=== PATIENT | female | born 1980 | race Caucasian/White ===

== ENCOUNTER 2018-10-14 13:19 | Outpatient (REF) | payer MEDICAID, SELFPAY ==
--- NOTE | 2018-10-14 11:30 | PAPFT_PTH ---
PATIENT: Teresita Garibay LOC: [facility] U#:[id number] AGE/SX: 38/F ROOM: RE10/14/[address]: Veronica Ortiz : 1980 BED: DIS: 10/14/2018 SPEC #: [id number] RECD: 10/14/18 18:00 STATUS: REGULO ALMEIDA #: [id number] CRICKET: 10/14/18 11:[address]: Veronica Ortiz DEPT: [facility] Cytology RECD BY: Diana Chavarria ENTERED: 10/14/18 18:01 SP TYPE: PAPFT JONATHAN DR: None Tissues: 1 - CX/ENDOCX FOR PAP SMEARS Procedures: PAP THIN PREP/UVM Screening HPV DNA PROBE Comments: [id number]
== END 2018-10-14 13:39 ==
LOC: NCHCN 13:19
PROVIDERS: Visit Provider Nurse Practitioner
DX: Z12.4 Encounter for screening for malignant neoplasm of cervix (principal); Z11.51 Encounter for screening for human papillomavirus (HPV); Z00.00 Encounter for general adult medical examination without abnormal findings
CPT/HCPCS: 88142; 87624

== ENCOUNTER 2019-07-15 10:56 | Outpatient (REF) | payer MEDICAID, SELFPAY ==
[2019-07-15 12:16] LABS: Abs Immature Grans 0.01 k/cumm (0.0-0.09); Absolute Basophil Count 0.02 k/cumm (0.0-0.2); Absolute Eosinophil Count 0.05 k/cumm (0.0-0.7); Absolute Lymphocyte Count 2.22 k/cumm (1.2-3.4); Absolute Monocyte Count 0.64 k/cumm (0.11-0.7); Absolute Neutrophil Count 5.38 k/cumm (1.2-6.7); Basophils % 0.2; Eosinophils % 0.6; HCT 41.8 % (36.0-46.0); HGB 14.4 g/dL (12.0-15.5); Immature Grans % 0.1; Lymphocytes % 26.7; Mean Corp. HGB Concentration 34.4 g/dL (32.0-36.0); Mean Corpuscular Hemoglobin 33.3 pg (27.0-33.0); Mean Corpuscular Volume 96.8 fL (80-95); Mean Platelet Volume 11.5 fL (8.0-11.0); Monocytes % 7.7; Neutrophils % 64.7; Platelet Count 230 x1000/uL (130-400); RBC 4.32 m/cumm (4.00-5.20); White Blood Cell Count 8.32 k/cumm (4.4-10.8)
== END 2019-07-15 11:16 ==
LOC: NCHCN 10:56
PROVIDERS: PCP Family Medicine; Visit Provider Family Medicine
DX: R59.1 Generalized enlarged lymph nodes (principal); R53.83 Other fatigue
CPT/HCPCS: 85025

== ENCOUNTER 2021-04-10 08:33 | Emergency (ER) | payer MEDICAID, SELFPAY ==
[2021-04-10 08:42] VITALS: BP 126/70; PULSE 79; RESP 16; TEMP 36.4; O2SAT 100
--- NOTE | 2021-04-10 08:46 | ED.GENADUL_ITS ---
Discharge Plan Disposition Patient Disposition: HOME Condition: Stable Discharge Details Clinical Impression: URI (upper respiratory infection) Primary Care Provider: Carey Jean-Baptiste ED Provider: Aubrey Busby Home Meds and New Rx's Prescriptions: Continued ibuprofen 200 MG capsule 3 tab PO PRN PRNRF: 0 ascorbic acid (vitamin C) [Vitamin C] 1,000 MG tablet 2,000 mg PO DAILY RF: 0 cetirizine 10 MG tablet,chewable 10 mg PO DAILY RF: 0 cholecalciferol (vitamin D3) [Vitamin D3] 50 mcg (2,000 unit) Capsule 50 mcg PO DAILY RF: 0 Discharge Instructions Instructions: Upper Respiratory Infection (ED) Additional Instructions: Based upon your symptoms and the timeline, very unlikely this is related to tetanus. Tetanus status updated today. Rapid strep is negative, culture pending. Covid test is also pending, I recommend quarantining until your Covid test has come back negative in the next few days. In the meantime please watch for new or worsening symptoms as we discussed and return immediately to the ER. Otherwise plenty of fluids to avoid dehydration, [id number] medications for symptomatic control. I would contact your primary care office today from aware of your ER visit and discussed need for outpatient reevaluation if symptoms are to persist. Medical Decision Making This is a 40-year-old female who reports working on a vehicle Thursday afternoon, sustained a small injury to her left index finger and got dirt-rest under her thumb nails. Thursday morning she noticed a mild sore throat which has now progressed to a mild-moderate sore throat, headache, anterior neck disco mfort. Tetanus status is not up-to-date. Patient states that she is specifically concerned about tetanus. Symptoms began approximately 36 hours after possible exposure which would certainly be rapid onset of symptoms. Clinically she has no trismus, spasms, signs of tetany. Patient likely has a viral URI. We discussed signs and symptoms of tenderness in length and patient was encouraged to return immediately to the ER if she develops any of these. Will test for rapid strep and Covid given her URI-like symptoms. Patient is comfortable plan and has no additional questions or concerns. We did discuss the importance of quarantining until Covid test is negative. Rapid strep negative, culture pending. Patient continues to appear well, nontoxic. Patient is comfortable with this plan and has no additional questions or concerns. Medical Records Medical records reviewed: Yes I reviewed the patient's medical records. Lab Data Lab results reviewed: Yes I reviewed the patient's lab results. Labs: 04/10/21 08:55 Pharynx Group A Streptococcus Culture - Pending HPI General Mode of arrival: ambulatory . Date/Time Provider Initiated Documentation: 04/10/21 08:33 . Limitations to Documentation: no limitations . Information obtained by: patient . HPI Narrative: This is a 40-year-old female, denies significant past medical history, presenting to the ER complaining of a sore throat, mild global headache, concern for potential tetanus after sustaining abrasion on Thursday while working on her car. Patient states that she had a small cut to her left index finger and had alena material underneath both of her thumb nails. She attempted to take out the rest under her nails and cleaned the cut with soap and water. This occurred on Thursday afternoon. She states that approximately 36 hours later, Thursday, she noticed a scratchy throat that subsequently became more painful associate with a headache and anterior neck pain. She denies visual changes, posterior neck discomfort, fever, chest pain, shortness of breath, abdominal pain, nausea, vomiting, difficulty opening her mouth, swallowing, muscle spasms, numbness, tingling, weakness. Patient believes that her tetanus status is out of date. Related Data Home Medications Medication Instructions Recorded Confirmed ibuprofen 3 tab PO PRN PRN 02/04/16 04/10/21 ascorbic acid (vitamin C) [Vitamin 2,000 mg PO DAILY 06/23/17 04/10/21 C] cetirizine 10 mg PO DAILY 06/23/17 04/10/21 cholecalciferol (vitamin D3) 50 mcg PO DAILY 04/10/21 04/10/21 [Vitamin D3] Allergies Allergy/AdvReac Type Severity Reaction Status Date / Time amoxicillin Allergy Mild Hives Unverified 04/10/21 08:50 codeine Allergy Unknown Unverified 04/10/21 08:50 Sulfa (Sulfonamide AdvReac Unknown Dizziness/L Unverified 04/10/21 08:50 Antibiotics) ightheade Review of Systems Constitutional Constitutional: Denies fever(s), Reports headache(s) and Denies weakness ENT Ears, Nose, Mouth, and Throat: Reports headache(s), Reports neck pain and Reports sore throat Cardiovascular Cardiovascular: Denies chest pain and Denies dyspnea Respiratory Respiratory: Denies cough and Denies dyspnea Gastrointestinal Gastrointestinal: Denies abdominal pain, Denies nausea and Denies vomiting Musculoskeletal Musculoskeletal: Denies back pain, Denies muscle cramps, Denies muscle weakness, Reports neck pain, Denies numbness and Denies tingling Integumentary/Breasts Skin/Breast: Denies rash Neurologic Neurologic: Reports headache(s), Denies numbness, Denies tingling and Denies weakness [facility] Social History Smoking/Tobacco Use Status: Current every day Smoking risk assessment performed?: Yes Alcohol Intake: current Alcohol Intake frequency: 3 or more drinks per day Alcohol type: beer Drug use: Never Do you feel safe at home: Yes Do you feel safe in your relationship?: Yes Exam Const General: cooperative, healthy appearing, comfortable and no acute distress Orientation: alert and awake HENMT Head: normal to inspection, normocephalic and atraumatic Ears: external ears normal, TM's normal bilaterally and EAC's normal General nose exam: external nose normal Face and sinus: normal facial exam Mouth: oral mucosae normal and moist mucous membranes Throat: posterior oropharynx normal Other: No evidence of trismus Eyes General: appearance normal, both eyes and all related structures Alignment and Position: alignment normal Periorbital: periorbital findings normal Eyelids: eyelids normal Conjunctivae: conjunctivae normal Sclera: sclerae normal Cornea: corneas normal Pupils: PERRL EOM: EOM intact bilaterally Direct ophthalmoscopy: normal light reflex Neck Neck: normal visual inspection, full ROM, no lymphadenopathy, no meningeal signs, trachea midline, supple, no anterior neck swelling and tender (Minimal anterior aspect.) Resp Effort & Inspection: normal respiratory effort and able to speak in complete sentences Auscultation: clear to auscultation bilaterally Cardio Rate: regular rate Rhythm: regular rhythm GI Palpation: soft and nontender Skin General skin exam: no rashes or lesions noted Neuro General: patient alert, patient awake, moves all extremities and no focal motor deficits Cognition: normal cognition Speech: speech normal Gait: normal gait Motor: muscle tone normal throughout and no fasciculations Sensory Exam: no sensory deficits noted Extrem General: normal to inspection and full ROM Other: To visualize a small amount of foreign body underneath the right thumbnail but I do not appreciate any obvious bleeding, break of the skin, signs of secondary infection. Left hand index finger along the medial aspect between the MCP and PIP joint there is a well-healing abrasion, no signs of foreign body, erythema, warmth. Normal capillary refill. Normal range of motion. Neuro, vascular, tendon intact. Psych Appearance: grossly normal Mental Status: mental status grossly normal
[2021-04-11 13:10] LABS: COVID-19 RT-PCR UVMMC Result Negative (Negative)
== END 2021-04-10 09:37 | disposition home or self-care (01) ==
PROVIDERS: Emergency Provider Physician Assistant; PCP Nurse Practitioner
DX: J06.9 Acute upper respiratory infection, unspecified (principal); S61.211A Laceration without foreign body of left index finger without damage to nail, initial encounter; W26.8XXA Contact with other sharp object(s), not elsewhere classified, initial encounter
CPT/HCPCS: 87880; 90471; 99284; U0003; 87081; 99283

== ENCOUNTER 2021-11-15 13:52 | Outpatient (REF) | payer MEDICAID, SELFPAY | END 2021-11-15 13:53 | disposition home or self-care (01) | LOC: LBN 13:52 | PROVIDERS: PCP Nurse Practitioner; Visit Provider Physician Assistant Medical | DX: L02.415 Cutaneous abscess of right lower limb (principal) | CPT/HCPCS: 87077; 87070; 87186; 87205 ==

== ENCOUNTER 2022-02-02 12:56 | Emergency (ER) | payer MEDICAID, SELFPAY ==
[2022-02-02 13:06] VITALS: BP 154/77; PULSE 86; RESP 18; TEMP 36.4; O2SAT 96
[2022-02-02 13:16] VITALS: RESP 18
--- NOTE | 2022-02-02 13:23 | ED.GENADUL_ITS ---
Discharge Plan Disposition Patient Disposition: HOME Condition: Improving Discharge Details Clinical Impression: URI (upper respiratory infection), COVID-19 Primary Care Provider: Veronica Ortiz ED Provider: Oswaldo Rizvi Home Meds and New Rx's Prescriptions: New lorazepam [Ativan] 0.5 mg tablet 0.5 mg PO DAILY PRN (Reason: anxiety) Qty: 5 0RF Continued ibuprofen 200 MG capsule 3 tab PO PRN PRN ascorbic acid (vitamin C) [Vitamin C] 1,000 MG tablet 2,000 mg PO DAILY cetirizine 10 MG tablet,chewable 10 mg PO DAILY cholecalciferol (vitamin D3) [Vitamin D3] 50 mcg (2,000 unit) Capsule 50 mcg PO DAILY Discharge Instructions Instructions: COVID-19 (Coronavirus Disease 2019) (ED) Additional Instructions: Your chest x-ray today did not show any acute cardiopulmonary finding. Continue to rest and self isolate with masking around others. Tylenol and ibuprofen as needed for pain. Small, frequent sips of fluids and/or popsicles to maintain good hydration. Follow-up with regular doctor about improving in 7 to 10 days time. Return to the ER for any acute concerns. You may use the provided Ativan if needed for anxiety, as prescribed Medical Decision Making 41-year-old female who has had upper respiratory illness for 1 week. She had a PCR COVID test that result positive. She has had body ache, myalgias, headache, and today while in the shower felt lightheaded and. She did not pass out. She denied of chest pain or short of breath. She is had no lower extremity pain or swelling. Stressed the ER slightly anxious but otherwise stable with normal oxygenation. This does seem most consistent with a viral syndrome. Patient given fluid bolus, screening laboratories obtained. Chest x-ray shows no acute pulmonary findings. Laboratories note a white count of 8, hematocrit 43, platelets 221. Chemistries are reassuring as are LFTs. Patient reassured. She is improved following fluids and acetaminophen. She is a good candidate for outpatient management at this time. She understands indications to seek reevaluation. She states that she has struggled with that idea and feels like she had an anxiety attack at home. She previously had as needed benzodiazepine. I do feel suitable for her to be discharged with a small number of Ativan 0.5 mg tablets to be used if needed. HPI General Mode of arrival: ambulatory . Date/Time Provider Initiated Documentation: 02/02/22 13:08 . Limitations to Documentation: no limitations . Information obtained by: patient . History of Present Illness 41 year old F presents to the emergency department with the chief complaint of Lightheaded and dizzy at home. Positive PCR COVID test, described as moderate, and is localized to the head. Patient reports no radiation. Patient started experiencing this minute(s) and it has been now resolved. No relieving factors improve symptom(s), No exacerbating factors reported . Patient notes cough, fever/chills, headaches, loss of appetite and weakness. Patient did receive the following treatments prior to arrival, none Related Data Home Medications Medication Instructions Recorded Confirmed ibuprofen 200 mg capsule 3 tab PO PRN PRN 02/04/16 02/02/22 ascorbic acid (vitamin C) 1,000 mg 2,000 mg PO DAILY 06/23/17 02/02/22 tablet (Vitamin C) cetirizine 10 mg chewable tablet 10 mg PO DAILY 06/23/17 02/02/22 cholecalciferol (vitamin D3) 50 50 mcg PO DAILY 04/10/21 02/02/22 mcg (2,000 unit) capsule (Vitamin D3) lorazepam 0.5 mg tablet (Ativan) 0.5 mg PO DAILY PRN anxiety #5 tabs 02/02/22 Previous Rx's Medication Instructions Recorded lorazepam 0.5 mg tablet (Ativan) 0.5 mg PO DAILY PRN anxiety #5 tabs 02/02/22 Allergies Allergy/AdvReac Type Severity Reaction Status Date / Time amoxicillin Allergy Mild Hives Unverified 02/02/22 13:09 codeine Allergy Unknown Unverified 02/02/22 13:09 Sulfa (Sulfonamide AdvReac Unknown Dizziness/L Unverified 02/02/22 13:09 Antibiotics) ightheade General Stated Complaint: Dizzy/Sync SHERICE: 3 Review of Systems Narrative: 8 systems reviewed and otherwise negative. Immunized x2 against COVID. PFSH All Active Problems (Updated 02/02/22 @ 14:31 by Oswaldo Rizvi MD) URI (upper respiratory infection) (Acute) COVID-19 (Acute) Social History Smoking/Tobacco Use Status: Current every day Tobacco Type: cigarettes Smoking risk assessment performed?: Yes Alcohol Intake: current Alcohol Intake frequency: 3 or more drinks per day Alcohol type: beer Drug use: Occasionally Substance use type: marijuana Do you feel safe at home: Yes Do you feel safe in your relationship?: Yes Exam Narrative Exam Narrative: GEN: awake, alert, oriented 3. Pleasant, well groomed, interactive. HEAD: Normocephalic, atraumatic ENT: Mucous membranes moist, oropharynx unremarkable, External ear exam unremarkable EYES: PERRL, EOMI NECK: Full ROM, no ERNESTINE, no menigismus CHEST/RESP: Nontender, clear to auscultation bilateral, no wheeze/rhonchi/rales CARDIOVASCULAR: RRR, no murmur, rub wandy. 2+ Rad pulse bilateral ABDOMEN: Soft, nontender, no mass. +Bowel sounds EXT: Full ROM, no edema, no rash Neuro: Grossly normal neurologic exam, conversant, interactive. Psych: Speech fluent, thoughts congruent, affect normal Course Vital Signs Vital signs: Vital Signs Temperature 36.4 C L 02/02/22 13:06 Pulse 86 02/02/22 13:06 Respiratory Rate 18 02/02/22 13:06 Blood Pressure 154/77 H 02/02/22 13:06 Pulse Oximetry 96 02/02/22 13:06 Temperature 36.4 C L 02/02/22 13:06 Temperature Source Temporal Artery Scan 02/02/22 13:06 Pulse 86 02/02/22 13:06 Respiratory Rate 18 02/02/22 13:16 Respiratory Effort Non-Labored 02/02/22 13:16 Respiratory Depth Normal 02/02/22 13:16 Respiratory Pattern Normal 02/02/22 13:16 Blood Pressure 154/77 H 02/02/22 13:06 Blood Pressure Position Sitting 02/02/22 13:06 Pulse Oximetry 96 02/02/22 13:06 Oxygen Delivery Method Room Air 02/02/22 13:06 Oxygen Flow Rate 0 02/02/22 13:06 PAWSS Have you Been Recently Intoxicated or Drunk Within the Last 30 days?: No Have you Ever Experienced Previous Episodes of Alcohol Withdrawal?: No Have you ever Experienced Withdrawal Seizures?: No Have you ever Experienced Delirium Tremens(DT)s?: No Have you ever undergone Alcohol Rehabilitation Treatment (i.e, inpt ot outpatient treatment programs)?: No Have you ever Experienced Blackouts?: No Have you ever Combined Alcohol with other Downers within the last 90 days?: No Have you ever Combined Alcohol with any other Substance of Abuse during the last 90 days?: No Positive Blood Alcohol level on Presentation? [PCS.BAL]: No Evidence of Increased Autonomic Activity (i.e. HR>120, tremor, sweating, agitation, nausea)?: No Result: 0
[2022-02-02 14:01] LABS: Abs Immature Grans 0.02 10^3/uL (0.0-0.06); Absolute Basophil Count 0.01 10^3/uL (0.0-0.2); Absolute Eosinophil Count 0.03 10^3/uL (0.0-0.7); Absolute Lymphocyte Count 2.04 10^3/uL (1.2-3.4); Absolute Monocyte Count 0.55 10^3/uL (0.1-0.8); Basophils % 0.1; Eosinophils % 0.3; Immature Grans % 0.2; Lymphocytes % 23.6; MCH 32.2 pg (27.0-33.0); MCHC 34.7 % (32.0-36.0); MCV 93 fL (80-95); Monocytes % 6.4; Neutrophils % 69.4; Platelet Count 221 10^3/uL (130-400); RBC 4.63 10^6/uL (3.93-5.22); RDW 11.3 % (11.7-14.6); RDW-SD 38.5 fL; WBC 8.65 10^3/uL (4.4-10.8)
[2022-02-02 14:03] LABS: HGB 14.9 g/dL (11.2-15.7)
[2022-02-02 14:15] LABS: ALT 25 U/L (14-59); AST 14 U/L (15-37); Albumin 3.6 g/dL (3.4-5.0); Alkaline Phosphatase 85 U/L (46-116); Anion Gap 8.4 mmol/L (3-11); BUN 7 mg/dL (7-18); Bilirubin, Total 0.4 mg/dL (0.2-1.0); CO2 24.6 mmol/L (21.0-32.0); CREATININE 0.9 mg/dL (0.55-1.02); Calcium 8.6 mg/dL (8.5-10.1); Chloride 108 mmol/L (98-107); Glucose 109 mg/dL (74-106); Sodium 141 mmol/L (136-145); Total Protein 6.8 g/dL (6.4-8.2)
--- NOTE | 2022-02-02 14:16 | DI.RAD_ITS ---
Exam(s) XR PORTABLE CHEST AP EXAM: XR PORTABLE CHEST AP CLINICAL HISTORY: +Covid, cough TECHNIQUE: 2D digital imaging was performed of the chest. One image was obtained. An AP view was ob tained. COMPARISON: CR CHEST 2 VIEWS PA,LAT from 09/23/2010 FINDINGS: MEDIASTINUM: Normal. HEART: Normal. PULMONARY VASCULATURE: Normal. LUNGS: Clear. PLEURAL SPACE: No pleural effusion or pneumothorax. BONE:Within normal limits for the patient's age. OTHER FINDINGS:Normal. IMPRESSION: No acute pulmonary findings. DATA REPOSITORY: RADIATION DOSE DELIVERED:
[2022-02-02] MEDS: ACETAMINOPHEN 1,000 MG/100 ML BTL 400 MG IVPB (14:20)
[2022-02-02] MEDS: Normal Saline 1,000 ML 1000 ML IV (14:20)
--- NOTE | 2022-02-02 14:29 | DI.VRAD_ITS ---
PROCEDURE INFORMATION: Exam: XR Chest Exam date and time: 02/02/2022 1:55 PM Age: 41 years old Clinical indication: Patient HX: Pos covid, cough TECHNIQUE: Imaging protocol: XR of the chest. Views: 1 view. COMPARISON: No relevant prior studies available. FINDINGS: Lungs: Unremarkable. No consolidation. Pleural spaces: Unremarkable. No pleural effusion. No pneumothorax. Heart/Mediastinum: Unremarkable. No cardiomegaly. Bones/joints: Unremarkable for patient's age. IMPRESSION: No acute cardiopulmonary findings. Dictated and Authenticated by: Tracie Valiente MD. Ordering:MARY KATE Chacon MD
[2022-02-02 15:21] VITALS: BP 134/64; PULSE 68; RESP 16; TEMP 36.6; O2SAT 98
== END 2022-02-02 15:46 | disposition home or self-care (01) ==
PROVIDERS: Emergency Provider Emergency Medicine; PCP Nurse Practitioner
DX: U07.1 COVID-19 (principal); J06.9 Acute upper respiratory infection, unspecified
CPT/HCPCS: 36415; 80053; 96361; 96374; 99284; 71045; 85025; 99283; J0131

== ENCOUNTER 2022-05-22 16:54 | Outpatient (REF) | payer MEDICAID, SELFPAY ==
[2022-05-22 20:04] LABS: TSH (W/Ref FT4) 1.34 uIU/mL (0.36-3.74)
[2022-05-22 21:56] LABS: Bacteria Negative HPF (Negative); C & S Indicated? No; Crystals Negative HPF (Negative); Epithelial Cells Rare HPF (Negative); Mucus Negative (Negative); RBC Negative HPF (0-2); WBC Negative HPF (0-5)
[2022-05-22 22:39] LABS: COMMENT (LAB VIEW ONLY) < 13.00 mg/dL
[2022-05-22 22:40] LABS: PROTEIN < 6.0 mg/dL
== END 2022-05-22 16:55 | disposition home or self-care (01) ==
LOC: NCHCN 16:54
PROVIDERS: PCP Nurse Practitioner; Visit Provider Nurse Practitioner Family
DX: R03.0 Elevated blood-pressure reading, without diagnosis of hypertension (principal); K59.09 Other constipation
CPT/HCPCS: 81015; 82565; 84156; 84443

== ENCOUNTER → 2023-09-28 04:43 | Outpatient (CLI) | payer MEDICAID, SELFPAY ==
--- NOTE | 2023-09-28 | DI.MAMMO_ITS ---
Exam(s) MAMMO SCREENING EXAM: MAMMO SCREENING CLINICAL HISTORY: BASELINE,SCREENING,GEN MEDICAL ADULT EXAM,Z00.00 TECHNIQUE: Mammograms were interpreted according to the usual protocol including computer analysis w [employer] CAD system, tomosynthesis and C-view imaging. COMPARISON: None. Baseline examination. FINDINGS: The breasts are composed of heterogeneously dense fibroglandular densities, Breast Density category C . No suspicious masses or suspicious microcalcifications are seen. No skin thickening or abnormal axillary lymph nodes are seen. Smoothly marginated 19 millimeter density seen in the posteromedial right breast, likely a cyst. Ult rasound is recommended for further evaluation. IMPRESSION: BI-RADS Category 0 - Assessment Incomplete: Need additional imaging evaluation Breast Density Category C, heterogeneously Dense. The mammogram demonstrates the patient's breast tissue is dense. Dense breast tissue is very common a nd is not abnormal but dense breast tissue can make it harder to find cancer on a mammogram. Also, de nse breast tissue may increase breast cancer risk. This information about the result of the mammogram report was provided to the patient to raise their awareness. Use this report when you speak with the patient about their risks for breast cancer, which includes their family history. At that time, you may recommend additional screening tests (Ultrasound or MRI) as they might be useful based on their r isk. A negative radiographic report should not delay biopsy if a dominant or clinically suspicious mass is present. Up to ten percent of cancers are not identified on mammography. A negative report may reinforce clinical impression. Adenosis and dense breasts may obscure an underlying neoplasm. False positive reports average 6 to 10%.
== END ==
PROVIDERS: PCP Nurse Practitioner; Visit Provider Nurse Practitioner Family
DX: Z12.31 Encounter for screening mammogram for malignant neoplasm of breast (principal); N60.01 Solitary cyst of right breast
CPT/HCPCS: 77063; 77067

== ENCOUNTER → 2023-09-30 01:49 | Outpatient (CLI) | payer MEDICAID, SELFPAY ==
--- NOTE | 2023-09-30 | DI.US_ITS ---
Exam(s) MG MAMMO SCREEN CALL BACK UNI US BREAST RT COMPLETE EXAM: MG MAMMO SCREEN CALL BACK UNI-RIGHT AND COMPLETE RIGHT BREAST ULTRASOUND CLINICAL HISTORY: F/U MAMMO, DENSITY, ? CYST. TECHNIQUE: Unilateral spot mammographic images obtained with 3D tomosynthesisand utilizing computer aided detection (CAD). . Complete RIGHT breast Ultrasound was also performed, including all 4 quadrants, the retroareolar trinh on, and the ipsilateral axilla. COMPARISON: Prior mammograms were reviewed. This additional imaging was performed due to findings described on the recent screening mammogram of 09/28/2023. FINDINGS: DIAGNOSTIC MAMMOGRAM: Additional mammographic views performed todaydoes not dissipate the nodule. We proceeded with ultrasound... COMPLETE RIGHT BREAST ULTRASOUND: Ultrasound performed today reveals multiple benign cysts but no solid lesions. The largest cyst is a t the deep 12 o'clock position and corresponds to the finding on the mammogram. This measures 1.9 x 0.8 cm. Other smaller microcysts are noted at 12 o'clock position and 3 o'clock position and 9 o'hamida ck position.. Scanning of the ipsilateral axilla reveals no significant adenopathy. IMPRESSION: 1. Benign findings. The nodule on the recent screening mammogram corresponds to her largest cyst on today's ultrasound which measures 19 x 8 mm. 2. Most importantly, there are no solid lesions evident in the right breast. Appropriate follow-up is to keep this patient on a yearly mammogram schedule, with earlier imaging i f a self detected breast change is noted. The patient was informed of these findings and recommendations by myself prior to leaving the departm ent today. BI-RADS Category 2 - Benign Findings Breast Density - Category D - Extremely dense Breast density Category C or D implies that the patient has dense breast tissue. Dense breast tissue can make it harder to find cancer on a mammogram. Dense breast tissue is also associated with an incr eased risk of breast cancer. This information about the result of the mammogram report was provided to the patient to raise their awareness. Use this report when you speak with the patient about their risks for breast cancer, which includes their family history. At that time, you may recommend additional screening tests (Ultrasoun d or MRI) as these tests may add significant information. A negative radiographic report should not delay biopsy if a dominant or clinically suspicious mass is present. Up to ten percent of cancers are not identified on mammography. A negative report may reinforce clinical impression. Adenosis and dense breasts may obscure an underlying neoplasm. False positive reports average 6 to 10%. Patient will receive a letter notifying them of these results.
== END ==
PROVIDERS: PCP Nurse Practitioner; Visit Provider Nurse Practitioner Family
DX: N60.01 Solitary cyst of right breast (principal); Z12.31 Encounter for screening mammogram for malignant neoplasm of breast
CPT/HCPCS: 76642; 77063; 77067

== ENCOUNTER 2023-10-30 12:01 | Outpatient (REF) | payer MEDICAID, SELFPAY ==
--- NOTE | 2023-10-30 11:30 | PAPFT_PTH ---
PATIENT: Teresita Garibay [id number] AGE[facility]SX: 43/F ROOM: RE10/30/[address]: JING HERNANDEZ : 1980 BED: DIS: 10/30/2023 SPEC #: [id number] RECD: 10/30/23 18:14 STATUS: REGULO REQ #: [id number] CRICKET: 10/30/23 11:[address]: Jing Hernandez DEPT: [facility] Cytology RECD BY: Diana Chavarria ENTERED: 10/30/23 18:14 SP TYPE: PAPFT OTHR DR: Veronica Ortiz Tissues: 1 - CX/ENDOCX FOR PAP SMEARS Procedures: PAP THIN PREP/UVM Screening HPV DNA PROBE Comments: [id number]
== END 2023-10-30 12:02 | disposition home or self-care (01) ==
LOC: NCHCN 12:01
PROVIDERS: PCP Nurse Practitioner; Visit Provider Nurse Practitioner Family
DX: Z00.00 Encounter for general adult medical examination without abnormal findings (principal); Z12.4 Encounter for screening for malignant neoplasm of cervix; Z11.51 Encounter for screening for human papillomavirus (HPV)
CPT/HCPCS: 88142; 87624

== ENCOUNTER 2025-01-30 02:33 | Outpatient (CLI) | payer OTHER, SELFPAY ==
--- NOTE | 2025-01-30 12:24 | DI.MAMMO_ITS ---
Exam(s) MAMMO SCREENING EXAM: MAMMO SCREENING CLINICAL HISTORY: SCREENING MAMMO Z12.31. TECHNIQUE: Bilateral full field digital CC and MLO mammographic images were obtained with 3D tomosyn thesis and utilizing computer aided detection (CAD). COMPARISON: 2023 FINDINGS: Masses: No suspicious masses seen. The a circumscribed nodules again noted in the posterior right br east. Benign, punctate calcifications again noted. Architectural Distortion: None seen. Microcalcifications: No suspicious pleomorphic-type are seen. Skin Thickening/Nipple Retraction: None. IMPRESSION: 1. No significant interval change with no specific features of malignancy noted. 2. Unless there is more urgent need, annual screening mammography is recommended, as per [place] [employer] guidelines. BI-RADS Category 2 - Benign Findings Breast Density - Category D - extremely dense Breast density Category C or D implies that the patient has dense breast tissue. Dense breast tissue can make it harder to find cancer on a mammogram. Dense breast tissue is also associated with an incr eased risk of breast cancer. This information about the result of the mammogram report was provided to the patient to raise their awareness. Use this report when you speak with the patient about their risks for breast cancer, which includes their family history. At that time, you may recommend additional screening tests (Ultrasoun d or MRI) as these tests may add significant information. A negative radiographic report should not delay biopsy if a dominant or clinically suspicious mass is present. Up to ten percent of cancers are not identified on mammography. A negative report may reinforce clinical impression. Adenosis and dense breasts may obscure an underlying neoplasm. False positive reports average 6 to 10%. Patient will receive a letter notifying them of these results.
== END 2025-01-30 02:53 ==
PROVIDERS: Visit Provider Nurse Practitioner Family
DX: Z12.31 Encounter for screening mammogram for malignant neoplasm of breast (principal)
CPT/HCPCS: 77063; 77067